=== PATIENT | male | born 1945 | race Caucasian/White ===

== ENCOUNTER 2017-08-08 21:32 | Emergency (ER) | payer OTHER, MEDICARE ==
[2017-08-08 21:39] VITALS: RESP 18; TEMP 98.2
--- NOTE | 2017-08-08 21:50 | CPEKG ---
Heart Rate: 73 RR Interval: 822 QRSD Interval: 98 QT Interval: 396 QTC Interval: 437 QRS [place]: 43 T Wave [place]: 2 EKG Severity - ABNORMAL ECG - EKG Impression: ATRIAL FIBRILLATION Electronically Signed By: aMriano Duke 08-Aug-2017 22:44:10
[2017-08-08 22:10] LABS: PLATELET COUNT 132 10^3/uL (150-400)
--- NOTE | 2017-08-08 22:48 | EDPHY ---
H & P Stated Complaint: "high bp". feeling "off" Time Seen by Provider: 08/08/17 22:39 HPI/ROS: CHIEF COMPLAINT: Hypertension HISTORY OF PRESENT ILLNESS: Patient is a 72-year-old man who noticed this evening that his blood pressure was high. 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 Magdy Alexandre who told him to stay home and take an extra amlodipine. He did this but his blood pressure did not improve. He decided to come to the ER. At triage she told nursing staff that he had mild chest pain from a fall about 4 days ago. He states that that has been somewhat constant and he is not concerned about it being his heart. He denies shortness of breath. No diaphoresis. No headache. No lightheadedness. REVIEW OF SYSTEMS: Constitutional: denies: chills, fever, recent illness, recent injury EENTM: denies: blurred vision, double vision, nose congestion Respiratory: denies: cough, shortness of breath Cardiac: denies: chest pain, irregular heart rate, lightheadedness, palpitations Gastrointestinal/Abdominal: denies: abdominal pain, diarrhea, nausea, vomiting, blood streaked stools Genitourinary: denies: dysuria, frequency, hematuria, pain Musculoskeletal: denies: joint pain, muscle pain Skin: denies: lesions, rash, jaundice, bruising Neurological: denies: headache, numbness, paresthesia, tingling, dizziness, weakness Hematologic/Lymphatic: denies: blood clots, easy bleeding, easy bruising Immunologic/allergic: denies: HIV/AIDS, transplant EXAM: GENERAL: Well-appearing, overweight and in no acute distress. HEAD: Atraumatic, normocephalic. EYES: Pupils equal round and reactive to light, extraocular movements intact, sclera anicteric, conjunctiva are normal. ENT: TMs normal, nares patent, oropharynx clear without exudates. Moist mucous membranes. NECK: Normal range of motion, supple without lymphadenopathy or JVD. LUNGS: Breath sounds clear to auscultation bilaterally and equal. No wheezes rales or rhonchi. HEART: Regular rate and rhythm without murmurs, rubs or gallops. ABDOMEN: Soft, nontender, normoactive bowel sounds. No guarding, no rebound. No masses appreciated. BACK: No CVA tenderness, no spinal tenderness, step-offs or deformities EXTREMITIES: Normal range of motion, no pitting or edema. No clubbing or cyanosis. NEUROLOGICAL: Cranial nerves II through XII grossly intact. Normal speech, normal gait. 5/5 strength, normal movement in all extremities, normal sensation PSYCH: Normal mood, normal affect. SKIN: Warm, dry, normal turgor, no visible rashes or lesions. Source: Patient, Family Exam Limitations: No limitations - Personal History Current Tetanus Diphtheria and Acellular Pertussis (TDAP): Yes - Medical/Surgical History Hx Asthma: No Hx Chronic Respiratory Disease: No Hx Diabetes: No Hx Cardiac Disease: Yes Hx Renal Disease: No Hx Cirrhosis: No Hx Alcoholism: No Hx HIV/AIDS: No Hx Splenectomy or Spleen Trauma: No Other PMH: PMH:afib, HTN, GERD,, hyperlipiemia. PSH: - Family History Significant Family History: No pertinent family hx - Social History Smoking Status: Former smoker Alcohol Use: Sober Drug Use: None Constitutional: Initial Vital Signs Temperature (C) 36.8 C 08/08/17 21:35 Heart Rate 74 08/08/17 21:35 Respiratory Rate 18 08/08/17 21:35 Blood Pressure 183/103 H 08/08/17 21:35 O2 Sat (%) 91 L 08/08/17 21:35 O2 Delivery Mode Room Air O2 (L/minute) 2 Allergies/Adverse Reactions: penicillin Allergy (Verified 08/08/17 21:34) Sulfa (Sulfonamide Antibiotics) Allergy (Verified 08/08/17 21:34) Home Medications: Medication Instructions Recorded Aspirin EC [Aspirin EC 81 mg (*)] 81 mg PO DAILY 08/08/17 Esomeprazole Magnesium [Nexium] 20 mg PO 08/08/17 Rosuvastatin Calcium [Crestor 20mg 20 mg PO DAILY 08/08/17 (*)] amLODIPine BESYLATE [Amlodipine 5 mg PO DAILY 08/08/17 Besylate] celeCOXIB [Celecoxib] 200 mg PO 08/08/17 traMADol [Ultram 50 mg (*)] 50 mg PO HS 08/08/17 Medical Decision Making - Diagnostics EKG Interpretation: An EKG obtained and was read and documented in trace view. Please see trace view for full reading and report. Atrial fibrillation, unchanged Imaging Results: Imaging Impressions Chest X-Ray 08/08/17 22:05 Impression: Basilar atelectasis/scarring with no acute findings in the chest. ED Course/Re-evaluation: Lab work, EKG and chest x-ray were done by nursing protocol. All are reassuring. I discussed this with the patient. His blood pressure is now improved to 160/80. He remains asymptomatic. I did offer further workup of his chest pain but he declines and is confident it is from his fall and is musculoskeletal. I agree that this is most likely. Advised him to track his blood pressures and follow up with Dr. Alexandre for medication adjustment. We also discussed indications for returning to the ER. Differential Diagnosis: Partial list of the Differential diagnosis considered include but were not limited to; anxiety, cardiac disease, contusion, rib fracture, and although unlikely based on the history and physical exam, I also considered pneumothorax , PE, head injury. I discussed these differential diagnoses and the plan with the patient as well as the usual and expected course. The patient understands that the diagnosis is provisional and that in medicine we are not always correct and that further workup is often warranted. Usual and customary warnings were given. All of the patient's questions were answered. The patient was instructed to return to the emergency department should the symptoms at all worsen or return, otherwise to followup with the physician as we discussed. - Data Points Laboratory Results: Laboratory Results 08/08/17 21:55 08/08/17 21:55 08/08/17 08/08/17 21:55 21:55 WBC 4.23 10^3/uL 10^3/uL (3.80-9.50) RBC 4.62 10^6/uL 10^6/uL (4.40-6.38) Hgb 15.0 g/dL g/dL (13.7-17.5) Hct 44.0 % % (40.0-51.0) MCV 95.2 fL fL (81.5-99.8) MCH 32.5 pg pg (27.9-34.1) MCHC 34.1 g/dL g/dL (32.4-36.7) RDW 12.4 % % (11.5-15.2) Plt Count 132 10^3/uL L 10^3/uL (150-400) MPV 9.9 fL fL (8.7-11.7) Neut % (Auto) 65.1 % % (39.3-74.2) Lymph % (Auto) 18.9 % % (15.0-45.0) Nicholas % (Auto) 12.3 % % (4.5-13.0) Eos % (Auto) 2.6 % % (0.6-7.6) Baso % (Auto) 0.9 % % (0.3-1.7) Nucleat RBC Rel Count 0.0 % % (0.0-0.2) Absolute Neuts (auto) 2.75 10^3/uL 10^3/uL (1.70-6.50) Absolute Lymphs (auto) 0.80 10^3/uL L 10^3/uL (1.00-3.00) Absolute Monos (auto) 0.52 10^3/uL 10^3/uL (0.30-0.80) Absolute Eos (auto) 0.11 10^3/uL 10^3/uL (0.03-0.40) Absolute Basos (auto) 0.04 10^3/uL 10^3/uL (0.02-0.10) Absolute Nucleated RBC 0.00 10^3/uL 10^3/uL (0-0.01) Immature Gran % 0.2 % % (0.0-1.1) Immature Gran # 0.01 10^3/uL 10^3/uL (0.00-0.10) Sodium 137 mEq/L mEq/L (135-145) Potassium 4.5 mEq/L mEq/L (3.5-5.2) Chloride 106 mEq/L mEq/L (97-110) Carbon Dioxide 17 mEq/l L mEq/l (22-31) Anion Gap 14 mEq/L mEq/L (8-16) BUN 17 mg/dL mg/dL (7-23) Creatinine 0.8 mg/dL mg/dL (0.7-1.3) Estimated GFR > 60 Glucose 216 mg/dL H mg/dL (70-100) Calcium 9.3 mg/dL mg/dL (8.5-10.4) Troponin I < 0.012 ng/mL ng/mL (0.000-0.034) Departure - Departure Disposition: Home, Routine, Self-Care Clinical Impression: Hypertension Qualifiers: Hypertension type: unspecified Qualified Code(s): I10 - Essential (primary) hypertension Condition: Fair Instructions: Hypertension (ED) Referrals: Jennifer Espinoza MD [Primary Care Provider] - As per Instructions Serg Alexandre MD [Medical Doctor] - 5-7 days, call for appt.
[2017-08-08 23:09] VITALS: BP 148/89; PULSE 72; O2SAT 96
== END 2017-08-08 23:08 | disposition home or self-care (01) ==
DX: I10 Essential (primary) hypertension (principal); Z79.82 Long term (current) use of aspirin; Z87.891 Personal history of nicotine dependence

== ENCOUNTER → 2017-10-17 | Outpatient (CLI) | payer OTHER, MEDICARE | LOC: EDSTATUS 13:46 → GIMAGING 17:21 | PROVIDERS: ATTEND Nurse Practitioner Family | DX: S92.531A Displaced fracture of distal phalanx of right lesser toe(s), initial encounter for closed fracture (principal); W20.8XXA Other cause of strike by thrown, projected or falling object, initial encounter | CPT/HCPCS: 73660-PO ==

== ENCOUNTER → 2018-08-18 | Outpatient (CLI) | payer OTHER, MEDICARE | LOC: BHFA 13:00 | PROVIDERS: ATTEND Internal Medicine Cardiovascular Disease | DX: I48.91 Unspecified atrial fibrillation (principal); I25.10 Atherosclerotic heart disease of native coronary artery without angina pectoris ==

== ENCOUNTER → 2018-09-08 | Outpatient (CLI) | payer OTHER, MEDICARE | LOC: BHFA 14:45 | PROVIDERS: ATTEND Internal Medicine Cardiovascular Disease | DX: I48.91 Unspecified atrial fibrillation (principal); I71.2 Thoracic aortic aneurysm, without rupture ==